=== PATIENT | female | born 1985 | race Caucasian/White ===

== ENCOUNTER 2019-03-10 03:25 | Inpatient (IN) | payer OTHER, BC ==
[2019-03-10] MEDS ORDERED: Misoprostol 200 MCG Tab PO PRN (12:20)
[2019-03-10] MEDS ORDERED: Carboprost Tromethamine 250 MCG/1 ML Amp IM PRN (12:20)
[2019-03-10] MEDS ORDERED: Sodium Chloride 0.9% 10 ML Syringe FLUSH PRN (12:20)
[2019-03-10] MEDS ORDERED: Lidocaine 1% 50 ML MDV INJECT PRN (12:20)
[2019-03-10] MEDS ORDERED: Tranexamic Acid 1,000 MG in Sodium Chloride 0.9% 100 ML IV PRN (12:20)
[2019-03-10] MEDS ORDERED: Nalbuphine 10 MG/1 ML Vial IVPUSH PRN (12:20)
[2019-03-10] MEDS ORDERED: Sodium Chloride 0.9% 2.5 ML Syringe FLUSH PRN (12:20)
[2019-03-10] MEDS ORDERED: Methylergonovine 0.2 MG/1 ML Amp IM PRN (12:20)
[2019-03-10] MEDS ORDERED: Terbutaline 1 MG/ML SDV SUBCUT PRN (12:20)
[2019-03-10] MEDS ORDERED: Ondansetron 4 MG/2 ML SDV IVPUSH PRN (12:20)
[2019-03-10] MEDS ORDERED: Sodium Chloride 0.9% 10 ML SDV IV PRN (12:20)
[2019-03-10] MEDS ORDERED: Butorphanol 1 MG/ML SDV IVPUSH PRN (12:20)
[2019-03-10] MEDS ORDERED: Water For Irrigation,Sterile 1,000 ML Container IRR PRN (12:20)
[2019-03-10] MEDS ORDERED: Oxytocin/0.9 % Sodium Chloride 30 UNIT/500 ML BAG IV SCH ×2 (12:30)
[2019-03-10] MEDS ORDERED: Ampicillin 2 GM in Sodium Chloride 0.9% 100 ML IV ONE (13:00)
[2019-03-10] MEDS: Lactated Ringers 1,000 ML IV SCH ×3 (13:25→22:49)
[2019-03-10] MEDS: Ampicillin 1 GM in Sodium Chloride 0.9% 50 ML IV SCH ×2 (17:13→21:18)
[2019-03-10] MEDS ORDERED: fentaNYL 100 MCG/2 ML SDV ONE (22:51)
[2019-03-10] MEDS ORDERED: Ropivacaine 0.2% 2 MG/ML 20 ML SDV ONE (22:51)
[2019-03-10] MEDS ORDERED: Ropivacaine HCl/PF 100 ML ONE (22:52)
--- NOTE | 2019-03-10 23:31 | PCM.PREANE ---
Preanesthetic Assessment - Procedure Proposed Procedure: Labor Epidural. . 3-4 cm. On pitocin. Labor active. - Anesthesia/Transfusion/Family Hx Anesthesia History: Prior Anesthesia Without Reaction Family History of Anesthesia Reaction: No Transfusion History: No Prior Transfusion(s) Intubation History: Unknown Additional History: Gestational Diabetes - Review of Systems General: No Symptoms Pulmonary: No Symptoms Cardiovascular: No Symptoms Gastrointestinal: No Symptoms Neurological: No Symptoms Other: Reports: None - Physical Assessment NPO Status Date: 03/10/19 NPO Status Time: 23:30 (Clear liquids) Height: 1.68 m Weight: 102.965 kg ASA Class: 2 Mental Status: Alert & Oriented x3 Dentition: Reports: Normal Dentition Thyro-Mental Finger Breadths: 3 Mouth Opening Finger Breadths: 3 ROM/Head Extension: Full Lungs: Clear to Auscultation Cardiovascular: Regular Rate - Lab Values: Laboratory Last Values WBC 12.29 K/uL (4.0-11.0) H 03/10/19 12:58 RBC 4.09 M/uL (4.30-5.90) L 03/10/19 12:58 Hgb 12.2 g/dL (12.0-16.0) 03/10/19 12:58 Hct 35.1 % (36.0-46.0) L 03/10/19 12:58 MCV 85.8 fL (80.0-98.0) 03/10/19 12:58 MCH 29.8 pg (27.0-32.0) 03/10/19 12:58 MCHC 34.8 g/dL (31.0-37.0) 03/10/19 12:58 RDW Std Deviation 40.6 fl (28.0-62.0) 03/10/19 12:58 RDW Coeff of Jhonny 13 % (11.0-15.0) 03/10/19 12:58 Plt Count 201 K/uL (150-400) 03/10/19 12:58 MPV 11.30 fL (7.40-12.00) 03/10/19 12:58 Nucleated RBC % 0.0 /100WBC 03/10/19 12:58 Nucleated RBCs # 0 K/uL 03/10/19 12:58 POC Glucose 68 mg/dL (60-110) 01/03/20 19:21 Blood Type O NEGATIVE 03/10/19 12:58 Antibody Screen NEGATIVE 03/10/19 12:58 - Allergies Allergies/Adverse Reactions: Allergies Allergy/AdvReac Type Severity Reaction Status Date / Time No Known Allergies Allergy Verified 02/03/15 17:13 PreAnesthesia Questionnaire HEENT History: Reports: Other (See Below) Other HEENT History: T and A and tubes put in as child Cardiovascular History: Reports: None Respiratory History: Reports: None Gastrointestinal History: Reports: None Genitourinary History: Reports: None MOSAIC LAYER History: Reports: Other OB/BYN History: 3 weeks post , breast feeding; had a large cyst removed from ovary 2014 Musculoskeletal History: Reports: None Neurological History: Reports: None Psychiatric History: Reports: None Endocrine/Metabolic History: Reports: Diabetes, Gestational, Obesity/BMI 30+ Hematologic History: Reports: None Immunologic History: Reports: None Oncologic (Cancer) History: Reports: None Dermatologic History: Reports: None - Past Surgical History Head Surgeries/Procedures: Reports: None HEENT Surgical History: Reports: Myringotomy w Tube(s), Tonsillectomy - SUBSTANCE USE Smoking Status *Q: Never Smoker Second Hand Smoke Exposure: No Recreational Drug Use History: No - HOME MEDS Home Medications: Home Meds Pnv No.95/Ferrous Fum/Folic AC [ Tablet] 1 each PO DAILY 02/03/15 [ History] Calcium Carbonate/Vitamin D3 [Calcium 1,000 + D3 Caplet] 1,000 mg PO DAILY 03/05 [History] - CURRENT (IN HOUSE) MEDS Current Meds: Current Medications Butorphanol Tartrate (Stadol) 1 mg IVPUSH Q1H PRN PRN Reason: Pain Carboprost Tromethamine (Hemabate Ds) 250 mcg IM ASDIRECTED PRN PRN Reason: Post Hemorrhage Ampicillin Sodium 1 gm/ Sodium (Chloride) 50 mls @ 100 mls/hr IV Q4H [facility] Last Admin: 03/10/19 21:18 Dose: 100 mls/hr Lactated Ringer's (Ringers, Lactated) 1,000 mls @ 150 mls/hr IV ASDIRECTED [facility] Last Admin: 03/10/19 22:49 Dose: 999 mls/hr Oxytocin/Sodium Chloride (Oxytocin 30 Unit/500 Ml-Ns) 30 unit in 500 mls @ 999 mls/hr IV TITRATE [facility] Oxytocin/Sodium Chloride (Oxytocin 30 Unit/500 Ml-Ns) 30 unit in 500 mls @ 2 mls/hr IV TITRATE [facility]; Protocol Last Titration: 03/10/19 22:58 Dose: 4 munits/min, 4 mls/hr Tranexamic Acid 1,000 mg/ (Sodium Chloride) 110 mls @ 660 mls/hr IV ONETIME PRN PRN Reason: Bleeding Lidocaine HCl (Xylocaine 1%) 50 ml INJECT ONETIME PRN PRN Reason: Laceration repair Methylergonovine Maleate (Methergine) 0.2 mg IM ASDIRECTED PRN PRN Reason: Post Hemorrhage Misoprostol (Cytotec) 200 mcg PO ONETIME PRN PRN Reason: Post Hemorrhage Nalbuphine HCl (Nubain) 10 mg IVPUSH Q1H PRN PRN Reason: Pain (severe 7-10) Ondansetron HCl (Zofran) 4 mg IVPUSH Q6H PRN PRN Reason: Nausea/Vomiting Sodium Chloride (Saline Flush) 10 ml FLUSH ASDIRECTED PRN PRN Reason: Keep Vein Open Sodium Chloride (Saline Flush) 2.5 ml FLUSH ASDIRECTED PRN PRN Reason: Keep Vein Open Sodium Chloride (Normal Saline) 10 ml IV ASDIRECTED PRN PRN Reason: IV Use Sterile Water (Sterile Water For Irrigation) 1,000 ml IRR ASDIRECTED PRN PRN Reason: delivery Terbutaline Sulfate (Brethine) 0.25 mg SUBCUT ASDIRECTED PRN PRN Reason: Tacysystole Discontinued Medications Fentanyl (Sublimaze) Confirm Administered Dose 100 mcg .ROUTE .ST-MED ONE Stop: 03/10/19 22:52 Ampicillin Sodium 2 gm/ Sodium (Chloride) 100 mls @ 200 mls/hr IV ONETIME ONE Stop: 03/10/19 13:29 Last Admin: 03/10/19 13:30 Dose: 200 mls/hr Ropivacaine (Naropin 0.2%) Confirm Administered Dose 100 mls @ as directed .ROUTE .STK-MED ONE Stop: 03/10/19 22:53 Ropivacaine (Naropin 0.2%) Confirm Administered Dose 20 ml .ROUTE .STK-MED ONE Stop: 03/10/19 22:52
--- NOTE | 2019-03-10 23:41 | PCM.PRNOTE ---
- Free Text/Narrative Note: active labor requests epidural. Discussed. ? answered. Permit signed. Acceptable candidate. 23:03 Prep: Chloroprep 23:06 Skin Local: 4ml 1% lidocaine 23:08 Space L3-4 with 17 guage touhy needle. Space via SHARI with air/saline. Reconfirmed with saline. 23:10 Cath to 8 cm without issues. 23:13-17 Test does with 5 ml 1.5% lido with 1:200K epi added. Test negative. Occlusive drsg applied. 23:20-26 Bolus does of 0.2% naropin 8ml + 100 mcg fentanyl. 23:30 doing well. Pain control improving. 23:42 Good analgesia. Infusion started @ 8ml/hr with 4ml q15 bolus. Tolerated procedure well.
[2019-03-11] MEDS: Ampicillin 1 GM in Sodium Chloride 0.9% 50 ML IV SCH (01:07)
[2019-03-11] MEDS ORDERED: Ibuprofen 400 MG Tab PO PRN (04:05)
[2019-03-11] MEDS ORDERED: Docusate Sodium 100 MG Cap PO PRN (04:05)
[2019-03-11] MEDS ORDERED: Bisacodyl 10 MG Supp RECTAL PRN (04:05)
[2019-03-11] MEDS ORDERED: Lanolin 100% Cream 7 GM Tube TOP PRN (04:05)
[2019-03-11] MEDS ORDERED: Acetaminophen 500 MG Tab PO PRN ×2 (04:05)
[2019-03-11] MEDS ORDERED: Benzocaine/Menthol 20%-0.5% Spray 78 GM Cannister TOP PRN (04:05)
[2019-03-11] MEDS ORDERED: Witch Hazel Medicated Pads 40/Jar TOP PRN (04:05)
--- NOTE | 2019-03-11 05:11 | OR ---
SURGEON: Rajiv Ham MD DATE OF PROCEDURE: 03/11/2019 INDICATION: A 33-year-old, -0-1-3, at 39 weeks and 6 days of gestation, admitted for induction of labor for GDM A1. The patient had gestational diabetes that was well controlled with diet, she had normal blood sugars since admission. She was induced with Pitocin and augmented with AROM. She was found to have thick meconium. She was GBS positive and given ampicillin for prophylaxis. Had category 1 tracing. The patient progressed to fully dilated and started pushing with contractions. PREOPERATIVE DIAGNOSES: 1. Mahmood intrauterine at 39 weeks and 6 days. 2. Gestational diabetes mellitus A1. 3. Active second stage of labor. POSTOPERATIVE DIAGNOSES: 1. Mahmood intrauterine at 39 weeks and 6 days. 2. Gestational diabetes mellitus A1. 3. Active second stage of labor. PROCEDURE: Normal spontaneous vaginal delivery. ANESTHESIA: Epidural. ESTIMATED BLOOD LOSS: 700 mL. FINDINGS: Live female fetus. Weight of 9lbs 4oz. of 7 and 9. Direct occiput posterior position. DESCRIPTION OF PROCEDURE: The patient pushed with contractions for approximately 2 hours with good descent. head delivered in direct occiput posterior position, restituted ROT. Anterior shoulder delivered easily followed by the posterior shoulder and the remaining body. No nuchal cord was noted. The baby was placed on maternal chest, and assessed by nursery staff and signal maintainer. The baby was pink, crying vigorously, moving all extremities after delivery. Bulb suction was used to clear the nose and mouth. The umbilical cord was clamped and cut after 60 seconds and no longer pulsating. Umbilical cord gases were obtained. The placenta was removed with gentle traction on the umbilical cord. Perineum was examined and there were no lacerations. She was noted to be bleeding briskly. Bimanual massage was performed and the uterus was found to be hypotonic. She was given Pitocin bolus, Methergine IM x1, tranexamic acid 1g IV. The bleeding started to improve and was minimal. The fundus was then firm and at the umbilicus. The patient tolerated the procedure well and was given care instructions. KATIANA / GLADYS /[id number] ÁNGEL
--- NOTE | 2019-03-11 11:40 | PCM48HPAN ---
Post Anesthesia Note - EVALUATION WITHIN 48HRS OF ANESTHETIC Vital Signs in Normal Range: Yes Patient Participated in Evaluation: Yes Respiratory Function Stable: Yes Airway Patent: Yes Cardiovascular Function Stable: Yes Hydration Status Stable: Yes Pain Control Satisfactory: Yes Nausea and Vomiting Control Satisfactory: Yes Mental Status Recovered: Yes Vital Signs: Last Vital Signs Temp 36.3 C 03/11/19 09:30 Pulse 79 03/11/19 09:30 Resp 22 H 03/11/19 09:30 BP 113/56 L 03/11/19 09:30 Pulse Ox 97 03/11/19 09:30 - COMMENTS/OBSERVATIONS Free Text/Narrative:: Doing well.
[2019-03-11] MEDS: Ibuprofen 800 MG Tab PO PRN (12:51)
[2019-03-12] MEDS: Ibuprofen 800 MG Tab PO PRN (05:24)
--- NOTE | 2019-03-12 11:21 | PCM.PNPP ---
- General Info Date of Service: 03/12/19 Functional Status: Reports: Pain Controlled, Tolerating Diet, Ambulating, Urinating - Review of Systems General: Reports: No Symptoms HEENT: Reports: No Symptoms Pulmonary: Reports: No Symptoms Cardiovascular: Reports: No Symptoms Gastrointestinal: Reports: No Symptoms Genitourinary: Reports: No Symptoms Musculoskeletal: Reports: No Symptoms Skin: Reports: No Symptoms Neurological: Reports: No Symptoms Psychiatric: Reports: No Symptoms - Patient Data Vital Signs - Most Recent: Last Vital Signs Temp 36.4 C 03/12/19 07:44 Pulse 78 03/12/19 07:44 Resp 18 03/12/19 07:44 BP 108/54 L 03/12/19 07:44 Pulse Ox 97 03/12/19 07:44 Weight - Most Recent: 227 lb Lab Results - Last 24 Hours: Laboratory Results - last 24 hr 03/12/19 Range/Units 05:50 Hgb 10.1 L (12.0-16.0) g/dL Hct 30.2 L (36.0-46.0) % Med Orders - Current: Current Medications Acetaminophen (Tylenol Extra Strength) 500 mg PO Q4H PRN PRN Reason: Pain Acetaminophen (Tylenol Extra Strength) 1,000 mg PO Q4H PRN PRN Reason: Pain Benzocaine/Menthol (Dermoplast Pain Relief 20%-0.5% [place]) 78 gm TOP ASDIRECTED PRN PRN Reason: Perineal Comfort Measure Bisacodyl (Dulcolax) 10 mg RECTAL ONETIME PRN PRN Reason: Constipation Butorphanol Tartrate (Stadol) 1 mg IVPUSH Q1H PRN PRN Reason: Pain Carboprost Tromethamine (Hemabate Ds) 250 mcg IM ASDIRECTED PRN PRN Reason: Post Hemorrhage Docusate Sodium (Colace) 100 mg PO BID PRN PRN Reason: Constipation Last Admin: 03/11/19 09:39 Dose: 100 mg Emollient Ointment (Lansinoh Hpa) 0 gm TOP ASDIRECTED PRN PRN Reason: Sore Nipples Lactated Ringer's (Ringers, Lactated) 1,000 mls @ 150 mls/hr IV ASDIRECTED [facility] Last Admin: 03/10/19 22:49 Dose: 999 mls/hr Oxytocin/Sodium Chloride (Oxytocin 30 Unit/500 Ml-Ns) 30 unit in 500 mls @ 999 mls/hr IV TITRATE [facility] Oxytocin/Sodium Chloride (Oxytocin 30 Unit/500 Ml-Ns) 30 unit in 500 mls @ 2 mls/hr IV TITRATE STACE[facility]; Protocol Last Titration: 03/11/19 02:57 Dose: 8 munits/min, 8 mls/hr Tranexamic Acid 1,000 mg/ (Sodium Chloride) 110 mls @ 660 mls/hr IV ONETIME PRN PRN Reason: Bleeding Last Admin: 03/11/19 03:38 Dose: 660 mls/hr Ibuprofen (Motrin) 400 mg PO Q4H PRN PRN Reason: Pain Ibuprofen (Motrin) 800 mg PO Q6H PRN PRN Reason: Pain Last Admin: 03/12/19 05:24 Dose: 800 mg Lidocaine HCl (Xylocaine 1%) 50 ml INJECT ONETIME PRN PRN Reason: Laceration repair Methylergonovine Maleate (Methergine) 0.2 mg IM ASDIRECTED PRN PRN Reason: Post Hemorrhage Last Admin: 03/11/19 03:36 Dose: 0.2 mg Misoprostol (Cytotec) 200 mcg PO ONETIME PRN PRN Reason: Post Hemorrhage Nalbuphine HCl (Nubain) 10 mg IVPUSH Q1H PRN PRN Reason: Pain (severe 7-10) Ondansetron HCl (Zofran) 4 mg IVPUSH Q6H PRN PRN Reason: Nausea/Vomiting Sodium Chloride (Saline Flush) 10 ml FLUSH ASDIRECTED PRN PRN Reason: Keep Vein Open Sodium Chloride (Saline Flush) 2.5 ml FLUSH ASDIRECTED PRN PRN Reason: Keep Vein Open Sodium Chloride (Normal Saline) 10 ml IV ASDIRECTED PRN PRN Reason: IV Use Sterile Water (Sterile Water For Irrigation) 1,000 ml IRR ASDIRECTED PRN PRN Reason: delivery Terbutaline Sulfate (Brethine) 0.25 mg SUBCUT ASDIRECTED PRN PRN Reason: Tacysystole Witch Crissy (Tucks) 1 pad TOP ASDIRECTED PRN PRN Reason: comfort care Discontinued Medications Fentanyl (Sublimaze) Confirm Administered Dose 100 mcg .ROUTE .[facility]-MED ONE Stop: 03/10/19 22:52 Ampicillin Sodium 2 gm/ Sodium (Chloride) 100 mls @ 200 mls/hr IV ONETIME ONE Stop: 03/10/19 13:29 Last Admin: 03/10/19 13:30 Dose: 200 mls/hr Ampicillin Sodium 1 gm/ Sodium (Chloride) 50 mls @ 100 mls/hr IV Q4H [facility] Last Admin: 03/11/19 01:07 Dose: 100 mls/hr Ropivacaine (Naropin 0.2%) Confirm Administered Dose 100 mls @ as directed .ROUTE .STK-MED ONE Stop: 03/10/19 22:53 Ropivacaine (Naropin 0.2%) Confirm Administered Dose 20 ml .ROUTE .STK-MED ONE Stop: 03/10/19 22:52 Tranexamic Acid (Cyklokapron) Confirm Administered Dose 1,000 mg .ROUTE .STK- MED ONE Stop: 03/11/19 05:48 Last Admin: 03/12/19 10:16 Dose: Not Given - Interaction Disposition, : [place] at Bedside Infant Interaction: Holding Infant Infant Feeding: Breastfed Infant; Nursed Well Support Person: - Recovery Exam Fundal Tone: Firm Fundal Level: At Umbilicus Fundal Placement: Midline Lochia Amount: Scant Lochia Color: Rubra/Red Perineum Description: Intact, Minimal Bruising/Swelling Episiotomy/Laceration: None Bladder Status: Voiding - Exam General: Alert, Oriented, Cooperative, No Acute Distress HEENT: Pupils Equal, Pupils Reactive Neck: Supple, Trachea Midline Lungs: Normal Respiratory Effort GI/Abdominal Exam: Soft, Non-Tender, No Distention Extremities: Normal Inspection, Normal Range of Motion, Non-Tender, No Pedal Edema Skin: Warm, Dry, Intact Psy/Mental Status: Alert, Normal Affect, Normal Mood - Problem List Review Problem List Initiated/Reviewed/Updated: Yes - Assessment Assessment:: 33yo PPD1 s/p , complicated by GDMA1. Stable and recovering well. - Plan Plan:: Vitals stable Hgb 10.1, denies s/s of anemia. Bleeding is minimal. Advised patient to take vitamins with iron supplement daily Ambulating and tolerating PO Baby is at bedside but still receiving antibiotics. Anticipate discharge tomorrow.
[2019-03-13 09:54] VITALS: BP 118/68; PULSE 77
--- NOTE | 2019-03-13 11:19 | PCM.PNPP ---
- General Info Date of Service: 03/13/19 Functional Status: Reports: Pain Controlled, Tolerating Diet, Ambulating, Urinating - Review of Systems General: Reports: Fatigue. Denies: Fever, Weakness Pulmonary: Denies: Shortness of Breath Cardiovascular: Denies: Chest Pain, Palpitations, Lightheadedness Gastrointestinal: Denies: Abdominal Pain, Nausea, Vomiting Genitourinary: Denies: Flank Pain Musculoskeletal: Reports: No Symptoms Skin: Reports: No Symptoms Neurological: Reports: No Symptoms Psychiatric: Reports: No Symptoms - General Info Date of Service: 03/13/19 - Patient Data Vital Signs - Most Recent: Last Vital Signs Temp 35.8 C 03/13/19 08:20 Pulse 77 03/13/19 08:20 Resp 16 03/13/19 08:20 BP 118/68 03/13/19 08:20 Pulse Ox 96 03/13/19 08:20 Weight - Most Recent: 102.965 kg Med Orders - Current: Current Medications Acetaminophen (Tylenol Extra Strength) 500 mg PO Q4H PRN PRN Reason: Pain Acetaminophen (Tylenol Extra Strength) 1,000 mg PO Q4H PRN PRN Reason: Pain Benzocaine/Menthol (Dermoplast Pain Relief 20%-0.5% [place]) 78 gm TOP ASDIRECTED PRN PRN Reason: Perineal Comfort Measure Bisacodyl (Dulcolax) 10 mg RECTAL ONETIME PRN PRN Reason: Constipation Butorphanol Tartrate (Stadol) 1 mg IVPUSH Q1H PRN PRN Reason: Pain Carboprost Tromethamine (Hemabate Ds) 250 mcg IM ASDIRECTED PRN PRN Reason: Post Hemorrhage Docusate Sodium (Colace) 100 mg PO BID PRN PRN Reason: Constipation Last Admin: 03/11/19 09:39 Dose: 100 mg Emollient Ointment (Lansinoh Hpa) 0 gm TOP ASDIRECTED PRN PRN Reason: Sore Nipples Lactated Ringer's (Ringers, Lactated) 1,000 mls @ 150 mls/hr IV ASDIRECTED [facility] Last Admin: 03/10/19 22:49 Dose: 999 mls/hr Oxytocin/Sodium Chloride (Oxytocin 30 Unit/500 Ml-Ns) 30 unit in 500 mls @ 999 mls/hr IV TITRATE STACE[facility] Oxytocin/Sodium Chloride (Oxytocin 30 Unit/500 Ml-Ns) 30 unit in 500 mls @ 2 mls/hr IV TITRATE STACEY; Protocol Last Titration: 03/11/19 02:57 Dose: 8 munits/min, 8 mls/hr Tranexamic Acid 1,000 mg/ (Sodium Chloride) 110 mls @ 660 mls/hr IV ONETIME PRN PRN Reason: Bleeding Last Admin: 03/11/19 03:38 Dose: 660 mls/hr Ibuprofen (Motrin) 400 mg PO Q4H PRN PRN Reason: Pain Ibuprofen (Motrin) 800 mg PO Q6H PRN PRN Reason: Pain Last Admin: 03/12/19 05:24 Dose: 800 mg Lidocaine HCl (Xylocaine 1%) 50 ml INJECT ONETIME PRN PRN Reason: Laceration repair Methylergonovine Maleate (Methergine) 0.2 mg IM ASDIRECTED PRN PRN Reason: Post Hemorrhage Last Admin: 03/11/19 03:36 Dose: 0.2 mg Misoprostol (Cytotec) 200 mcg PO ONETIME PRN PRN Reason: Post Hemorrhage Nalbuphine HCl (Nubain) 10 mg IVPUSH Q1H PRN PRN Reason: Pain (severe 7-10) Ondansetron HCl (Zofran) 4 mg IVPUSH Q6H PRN PRN Reason: Nausea/Vomiting Sodium Chloride (Saline Flush) 10 ml FLUSH ASDIRECTED PRN PRN Reason: Keep Vein Open Sodium Chloride (Saline Flush) 2.5 ml FLUSH ASDIRECTED PRN PRN Reason: Keep Vein Open Sodium Chloride (Normal Saline) 10 ml IV ASDIRECTED PRN PRN Reason: IV Use Sterile Water (Sterile Water For Irrigation) 1,000 ml IRR ASDIRECTED PRN PRN Reason: delivery Terbutaline Sulfate (Brethine) 0.25 mg SUBCUT ASDIRECTED PRN PRN Reason: Tacysystole Witch Crissy (Tucks) 1 pad TOP ASDIRECTED PRN PRN Reason: comfort care Discontinued Medications Fentanyl (Sublimaze) Confirm Administered Dose 100 mcg .ROUTE .STK-MED ONE Stop: 03/10/19 22:52 Ampicillin Sodium 2 gm/ Sodium (Chloride) 100 mls @ 200 mls/hr IV ONETIME ONE Stop: 03/10/19 13:29 Last Admin: 03/10/19 13:30 Dose: 200 mls/hr Ampicillin Sodium 1 gm/ Sodium (Chloride) 50 mls @ 100 mls/hr IV Q4H [facility] Last Admin: 03/11/19 01:07 Dose: 100 mls/hr Ropivacaine (Naropin 0.2%) Confirm Administered Dose 100 mls @ as directed .ROUTE .STK-MED ONE Stop: 03/10/19 22:53 Ropivacaine (Naropin 0.2%) Confirm Administered Dose 20 ml .ROUTE .STK-MED ONE Stop: 03/10/19 22:52 Tranexamic Acid (Cyklokapron) Confirm Administered Dose 1,000 mg .ROUTE .STK- MED ONE Stop: 03/11/19 05:48 Last Admin: 03/12/19 10:16 Dose: Not Given - Infant Interaction Disposition, : [place] at Bedside Interaction: Holding Infant Feeding: Breastfed Infant; Nursed Well Support Person: - Recovery Exam Fundal Tone: Firm Fundal Level: 2 Fingerbreadths Below Umbilicus Fundal Placement: Midline Lochia Amount: Small Lochia Color: Rubra/Red Perineum Description: Intact, Minimal Bruising/Swelling Episiotomy/Laceration: None Bladder Status: Voiding - Exam General: Alert, Oriented Lungs: Normal Respiratory Effort Cardiovascular: Regular Rate, Regular Rhythm GI/Abdominal Exam: Normal Bowel Sounds, Soft Extremities: Pedal Edema (trace). No: Aditya's Sign Skin: Warm, Dry, Intact Neurological: No New Focal Deficit Psy/Mental Status: Alert, Normal Affect, Normal Mood - Problem List & Annotations (1) Vaginal delivery SNOMED Code(s): 722008006 Code(s): O80 - ENCOUNTER FOR FULL-TERM UNCOMPLICATED DELIVERY Status: Acute Current Visit: Yes - Problem List Review Problem List Initiated/Reviewed/Updated: Yes - My Orders Last 24 Hours: My Active Orders 03/13/19 10:31 Ready for Discharge [RC] PER UNIT ROUTINE - Assessment Assessment:: 33yo PPD2 s/p , complicated by GDMA1. Stable and recovering well. - Plan Plan:: Ready to go home. Discharge instructions reviewed. Follow up at [facility] 6 weeks. Will need 75 gm GTT PP. Discharge to home today.
== END 2019-03-13 12:15 | disposition home or self-care (01) | DRG 807 ==
LOC: MW.OB 03:25 → OBSVTOIN 03-11 03:25 → MW.OB 03-11 14:30
PROVIDERS: ADMIT Obstetrics & Gynecology; ATTEND Obstetrics & Gynecology
PROC: 10E0XZZ Delivery of Products of Conception, External Approach (ICD-10-PCS; principal; 2019-03-11)
PROC: 10907ZC Drainage of Amniotic Fluid, Therapeutic from Products of Conception, Via Natural or Artificial Opening (ICD-10-PCS; 2019-03-11)
PROC: 3E033VJ Introduction of Other Hormone into Peripheral Vein, Percutaneous Approach (ICD-10-PCS; 2019-03-11)
PROC: 3E0R3BZ Introduction of Anesthetic Agent into Spinal Canal, Percutaneous Approach (ICD-10-PCS; 2019-03-11)
PROC: 00HU33Z Insertion of Infusion Device into Spinal Canal, Percutaneous Approach (ICD-10-PCS; 2019-03-11)
DX: O24.420 Gestational diabetes mellitus in childbirth, diet controlled (principal); Z37.0 Single live birth; O77.0 Labor and delivery complicated by meconium in amniotic fluid; O99.824 Streptococcus B carrier state complicating childbirth; Z3A.39 39 weeks gestation of pregnancy
CPT/HCPCS: 36415; 51702; 59025; 59409; 82962; 85014; 85018; 85027; 86593; 86850; 86900; 86901; A9270-GY; J0290; J2210; J2590; J2795; J3010; J7050; J7120